=== PATIENT | female | born 1990 | race Asian ===

== ENCOUNTER 2019-08-30 22:28 | Inpatient (IN) | payer OTHER ==
[~2019-08-30] VITALS: Ht 167.6 cm; Wt 127.9 kg
[2019-08-30] MEDS ORDERED: PROMETHAZINE 25 MG/ML VIAL IVP PRN (22:50)
[2019-08-30] MEDS ORDERED: OXYTOCIN 20 UNITS in LACTATED RINGERS 1,000 ML IV SCH (22:50)
[2019-08-30] MEDS ORDERED: MISOPROSTOL 25 MCG TAB VG PRN (22:50)
[2019-08-30] MEDS ORDERED: MORPHINE SULFATE 5 MG/ML VIAL IVP PRN (22:50)
[2019-08-30] MEDS ORDERED: METHYLERGONOVINE 0.2 MG/ML AMP IM PRN (22:50)
[2019-08-30] MEDS ORDERED: fentaNYL 0.05 MG/ML VIAL IVP PRN (22:50)
[2019-08-30] MEDS: LACTATED RINGERS 1,000 ML IV SCH (23:45)
[2019-08-31 00:14] LABS: BASOPHILS % (AUTO) 0.4 % (0.0-2.0); EOSINOPHILS # (AUTO) 0.1 K/uL (0-0.4); EOSINOPHILS % (AUTO) 2.1 % (0.0-4.0); HEMATOCRIT 36.5 % (36-48); HEMOGLOBIN 11.7 g/dL (12.0-16.0); LYMPHOCYTES # (AUTO) 1.5 K/uL (2.5-16.5); LYMPHOCYTES % (AUTO) 23.4 % (20.5-51.1); MEAN CORPUSCULAR HEMOGLOBIN 27 pg (27-31); MEAN CORPUSCULAR HGB CONC 32 g/dL (33-37); MEAN CORPUSCULAR VOLUME 85.1 fL (80-94); MONOCYTES # (AUTO) 0.4 K/uL (0.8-1.0); MONOCYTES % (AUTO) 5.6 % (1.7-9.3); NEUTROPHILS # (AUTO) 4.4 K/uL (1.8-7.7); NEUTROPHILS % (AUTO) 68.5 % (42.2-75.2); PLATELET COUNT (AUTO) 188 K/uL (140-450); RED BLOOD CELL COUNT(AUTO) 4.29 MIL/uL (4.20-5.40); RED CELL DISTRIBUTION WIDTH 15.1 % (11.6-13.7); WHITE BLOOD COUNT (AUTO) 6.5 K/uL (4.8-10.8)
[2019-08-31 00:26] LABS: APPEARANCE,URINE CLEAR (CLEAR); BILIRUBIN,URINE NEGATIVE (NEGATIVE); BLOOD, URINE NEGATIVE (NEGATIVE); COLOR,URINE YELLOW (YELLOW); LEUKOCYTE ESTERASE ,URINE 2+ (NEGATIVE); NITRITE, URINE NEGATIVE (NEGATIVE); UGLUCOSE NEGATIVE (NEGATIVE)
[2019-08-31 00:29] VITALS: BP 114/62
[2019-08-31 00:35] LABS: ALBUMIN 2.4 g/dL (3.4-5.0); ANION GAP 12.9 (8-16); CARBON DIOXIDE 25.3 mmol/L (21-32); CREATININE 0.8 mg/dL (0.6-1.3); POTASSIUM 3.2 mmol/L (3.5-5.1); TOTAL BILIRUBIN 0.3 mg/dL (0.0-1.0)
[2019-08-31] MEDS ORDERED: PREN-380 PO (00:37)
[2019-08-31 00:55] LABS: RBC,URINE 0-5 /HPF (0-5); WBC,URINE TOO MANY TO COUNT /HPF (0-5)
[2019-08-31] MEDS ORDERED: ROPIVACAINE 0.2%/NS PREMIX 200 ML EPI ONE ×2 (06:07→17:22)
[2019-08-31] MEDS: LACTATED RINGERS 1,000 ML IV SCH (06:30)
--- NOTE | 2019-08-31 09:05 | NUR ---
PATIENT HAS BEEN SCREENED AND CATEGORIZED LOW NUTRITION RISK. PATIENT WILL BE SEEN WITHIN 7 DAYS OF ADMISSION. 09/06/[address]
[2019-08-31] MEDS ORDERED: OXYTOCIN 20 UNITS/LR PREMIX 1,000 ML IV ONE (10:09)
[2019-08-31] MEDS ORDERED: DEXT 5% / LACT RING 1,000 ML IV SCH (10:30)
[2019-08-31] MEDS ORDERED: GENTAMICIN 100 MG in DEXTROSE 5% 100 ML IV SCH (20:35)
[2019-08-31] MEDS ORDERED: CLINDAMYCIN 900 MG in DEXTROSE 5% 100 ML IV SCH (20:35)
[2019-08-31] MEDS ORDERED: GENTAMICIN PER PHARMACY MC PRN (20:35)
[2019-08-31] MEDS ORDERED: CLINDAMYCIN 900 MG/6 ML VIAL IV ONE (20:46)
[2019-08-31] MEDS ORDERED: GENTAMICIN 80 MG/2 ML VIAL ONE (21:24)
[2019-08-31] MEDS ORDERED: TEMAZEPAM 15 MG CAP PO PRN (22:15)
[2019-08-31] MEDS ORDERED: OXYTOCIN 10 UNITS/ML VIAL IM PRN (22:15)
[2019-08-31] MEDS ORDERED: METHYLERGONOVINE 0.2 MG TAB PO PRN (22:15)
[2019-08-31] MEDS ORDERED: METHYLERGONOVINE 0.2 MG/ML AMP IM PRN (22:15)
[2019-08-31] MEDS ORDERED: MEASLES, MUMPS, AND RUBELLA 1 VIAL SQVAC PRN (22:15)
[2019-09-01] MEDS: oxyCODONE/APAP 5/325 MG 1 TAB TAB PO PRN ×4 (02:40→21:15)
[2019-09-01 18:18] LABS: HEMATOCRIT 35.7 % (36-48); HEMOGLOBIN 11.5 g/dL (12.0-16.0)
[2019-09-01] MEDS ORDERED: DOCUSATE SOD/SENNA 50/8.6 MG 1 TAB PO SCH (21:00)
[2019-09-02] MEDS: IBUPROFEN 800 MG TAB PO PRN ×2 (02:35→14:19)
== END 2019-09-02 18:05 | disposition home or self-care (01) | DRG 560 ==
LOC: MLD 22:28 → MFCC 09-01 00:15
PROVIDERS: ADMIT Obstetrics & Gynecology; ATTEND Obstetrics & Gynecology
PROC: 10E0XZZ Delivery of Products of Conception, External Approach (ICD-10-PCS; principal; 2019-08-31)
PROC: 10907ZC Drainage of Amniotic Fluid, Therapeutic from Products of Conception, Via Natural or Artificial Opening (ICD-10-PCS; 2019-08-31)
PROC: 3E0R3BZ Introduction of Anesthetic Agent into Spinal Canal, Percutaneous Approach (ICD-10-PCS; 2019-08-31)
PROC: 00HU33Z Insertion of Infusion Device into Spinal Canal, Percutaneous Approach (ICD-10-PCS; 2019-08-31)
PROC: 3E033VJ Introduction of Other Hormone into Peripheral Vein, Percutaneous Approach (ICD-10-PCS; 2019-08-31)
PROC: 3E0P7VZ Introduction of Hormone into Female Reproductive, Via Natural or Artificial Opening (ICD-10-PCS; 2019-08-31)
PROC: 3E0234Z Introduction of Serum, Toxoid and Vaccine into Muscle, Percutaneous Approach (ICD-10-PCS; 2019-08-31)
DX: O69.81X0 Labor and delivery complicated by cord around neck, without compression, not applicable or unspecified (principal); O24.424 Gestational diabetes mellitus in childbirth, insulin controlled; Z3A.38 38 weeks gestation of pregnancy; Z37.0 Single live birth; Z23 Encounter for immunization
CPT/HCPCS: 36415; 51702; 59200; 59409; 76815; 80053; 81001; 82948; 85018; 85025; 86592; 86886; 86900; 86901; 87086; 87186; 87653-90; 90715; J1580; J2590; J2795; J3490; J7120; Q0092

== ENCOUNTER 2020-06-19 07:15 | Emergency (ER) | payer OTHER ==
[~2020-06-19] VITALS: Ht 167.6 cm; Wt 122.5 kg
[~2020-06-19 07:15] MED LIST: PREN-380 PO
[2020-06-19 07:20] VITALS: BP 133/86
[2020-06-19] MEDS ORDERED: NACL 0.9% 1,000 ML IV ONE (07:30)
[2020-06-19] MEDS ORDERED: MORPHINE SULFATE 4 MG/ML SYR IVP ONE (07:30)
[2020-06-19] MEDS ORDERED: ONDANSETRON 4 MG/2 ML VIAL IVP ONE (07:30)
[2020-06-19 08:08] LABS: BASOPHILS % (AUTO) 0.2 % (0.0-2.0); EOSINOPHILS # (AUTO) 0.2 K/uL (0-0.4); EOSINOPHILS % (AUTO) 2.4 % (0.0-4.0); HEMATOCRIT 38.5 % (36-48); HEMOGLOBIN 12.7 g/dL (12.0-16.0); LYMPHOCYTES # (AUTO) 1.9 K/uL (2.5-16.5); MEAN CORPUSCULAR HEMOGLOBIN 29 pg (27-31); MEAN CORPUSCULAR HGB CONC 33 g/dL (33-37); MEAN CORPUSCULAR VOLUME 87.2 fL (80-94); MONOCYTES # (AUTO) 0.5 K/uL (0.8-1.0); MONOCYTES % (AUTO) 5.4 % (1.7-9.3); NEUTROPHILS # (AUTO) 5.8 K/uL (1.8-7.7); PLATELET COUNT (AUTO) 221 K/uL (140-450); RED BLOOD CELL COUNT(AUTO) 4.41 MIL/uL (4.20-5.40); RED CELL DISTRIBUTION WIDTH 14.2 % (11.6-13.7); WHITE BLOOD COUNT (AUTO) 8.5 K/uL (4.8-10.8)
[2020-06-19 08:21] LABS: ANION GAP 14.1 (8-16); CARBON DIOXIDE 24.5 mmol/L (21-32); CREATININE 0.8 mg/dL (0.6-1.3); POTASSIUM 3.6 mmol/L (3.5-5.1); TOTAL BILIRUBIN 0.3 mg/dL (0.0-1.0)
[2020-06-19 09:29] LABS: APPEARANCE,URINE HAZY (CLEAR); BILIRUBIN,URINE NEGATIVE (NEGATIVE); BLOOD, URINE 2+ (NEGATIVE); COLOR,URINE YELLOW (YELLOW); LEUKOCYTE ESTERASE ,URINE 1+ (NEGATIVE); NITRITE, URINE NEGATIVE (NEGATIVE); UGLUCOSE NEGATIVE (NEGATIVE)
[2020-06-19 09:34] LABS: WBC,URINE 0-5 /HPF (0-5)
[2020-06-19] MEDS ORDERED: cefTRIAXone 1,000 MG VIAL ONE (10:06)
[2020-06-19] MEDS ORDERED: ACET-9527 PO (10:15)
[2020-06-19] MEDS ORDERED: ACET-1194 PO (10:15)
[2020-06-19] MEDS ORDERED: ONDA-24 SL (10:15)
[2020-06-19] MEDS ORDERED: CEPH500C16 PO (10:15)
[2020-06-19 11:05] VITALS: BP 107/57
== END 2020-06-19 11:05 | disposition home or self-care (01) ==
LOC: MED 07:15
DX: O26.832 Pregnancy related renal disease, second trimester (principal); O24.419 Gestational diabetes mellitus in pregnancy, unspecified control; Z3A.17 17 weeks gestation of pregnancy
CPT/HCPCS: 36415; 76770; 76805; 80053; 81001; 83690; 84702; 85025; 86900; 86901; 87086; 96361; 96365; 96375; 99285; J0696; J2270; J2405; J7030

== ENCOUNTER 2020-11-04 22:00 | Inpatient (IN) | payer OTHER, SELFPAY ==
[~2020-11-04] VITALS: Ht 167.6 cm; Wt 128.4 kg
[~2020-11-04 22:00] MED LIST changes: +ACET-1194 PO; +ACET-9527 PO; +CEPH500C16 PO; +ONDA-24 SL
[2020-11-04] MEDS ORDERED: METHYLERGONOVINE 0.2 MG/ML AMP IM PRN (23:10)
[2020-11-04] MEDS ORDERED: OXYTOCIN 20 UNITS in LACTATED RINGERS 1,000 ML IV PRN (23:10)
[2020-11-04] MEDS ORDERED: ONDANSETRON 4 MG/2 ML VIAL IVP PRN (23:10)
[2020-11-04] MEDS ORDERED: MORPHINE SULFATE 5 MG/ML VIAL IVP PRN (23:10)
[2020-11-05 00:09] LABS: BASOPHILS % (AUTO) 0.4 % (0.0-2.0); EOSINOPHILS # (AUTO) 0.2 K/uL (0-0.4); EOSINOPHILS % (AUTO) 2.4 % (0.0-4.0); HEMATOCRIT 33.9 % (36-48); LYMPHOCYTES # (AUTO) 1.6 K/uL (2.5-16.5); LYMPHOCYTES % (AUTO) 21.9 % (20.5-51.1); MEAN CORPUSCULAR HEMOGLOBIN 28 pg (27-31); MEAN CORPUSCULAR HGB CONC 33 g/dL (33-37); MEAN CORPUSCULAR VOLUME 84.5 fL (80-94); MONOCYTES # (AUTO) 0.6 K/uL (0.8-1.0); MONOCYTES % (AUTO) 8.6 % (1.7-9.3); NEUTROPHILS # (AUTO) 4.8 K/uL (1.8-7.7); NEUTROPHILS % (AUTO) 66.7 % (42.2-75.2); PLATELET COUNT (AUTO) 209 K/uL (140-450); RED CELL DISTRIBUTION WIDTH 15.2 % (11.6-13.7); WHITE BLOOD COUNT (AUTO) 7.1 K/uL (4.8-10.8)
[2020-11-05 00:30] LABS: ALBUMIN 2.4 g/dL (3.4-5.0); ANION GAP 12.5 (8-16); CARBON DIOXIDE 23.5 mmol/L (21-32); CREATININE 0.9 mg/dL (0.6-1.3); TOTAL BILIRUBIN 0.2 mg/dL (0.0-1.0)
[2020-11-05 00:37] LABS: APPEARANCE,URINE HAZY (CLEAR); BILIRUBIN,URINE NEGATIVE (NEGATIVE); BLOOD, URINE TRACE-I (NEGATIVE); COLOR,URINE YELLOW (YELLOW); LEUKOCYTE ESTERASE ,URINE NEGATIVE (NEGATIVE); NITRITE, URINE NEGATIVE (NEGATIVE); PH,URINE 6.5 (5.0-9.0); UGLUCOSE NEGATIVE (NEGATIVE)
[2020-11-05 00:39] LABS: URINE TOTAL PROTEIN 28.3 mg/dL (0-12)
[2020-11-05 00:48] LABS: WBC,URINE 0-5 /HPF (0-5)
[2020-11-05 00:54] LABS: YEAST,URINE Rare /HPF (None Seen)
[2020-11-05] MEDS ORDERED: AMPICILLIN 2,000 MG in NACL 0.9% 100 ML IV SCH (01:00)
[2020-11-05] MEDS ORDERED: LACTATED RINGERS 1,000 ML IV SCH (01:00)
[2020-11-05 01:01] VITALS: BP 109/72
[2020-11-05] MEDS ORDERED: AMPICILLIN 2,000 MG VIAL ONE (01:37)
[2020-11-05] MEDS ORDERED: AMPICILLIN 1,000 MG VIAL ONE ×4 (05:22→18:18)
[2020-11-05] MEDS: AMPICILLIN 1,000 MG in NACL 0.9% 50 ML IV SCH ×4 (06:05→18:28)
[2020-11-05] MEDS ORDERED: OXYTOCIN 20 UNITS/LR PREMIX 1,000 ML IV ONE (06:24)
--- NOTE | 2020-11-05 07:07 | NUR ---
PATIENT HAS BEEN SCREENED AND CATEGORIZED LOW NUTRITION RISK. PATIENT WILL BE SEEN WITHIN 7 DAYS OF ADMISSION. 11/11/20 RIVAS LEO MS, RDN
[2020-11-05] MEDS ORDERED: MORPHINE SULFATE 10 MG/ML VIAL ONE (09:22)
[2020-11-05 09:27] VITALS: BP 119/76
[2020-11-05] MEDS ORDERED: [UNRECOGNIZED DRUG - OTHER] ONE (15:12)
[2020-11-05] MEDS ORDERED: LIDOCAINE MPF 1% 10 MG/ML VIAL ONE (15:12)
[2020-11-05] MEDS ORDERED: ROPIVACAINE 0.2%/NS PREMIX 200 ML EPI ONE (15:15)
[2020-11-05] MEDS ORDERED: fentaNYL citrate 0.05 MG/ML VIAL ONE (15:15)
[2020-11-05] MEDS ORDERED: OXYTOCIN 10 UNITS/ML VIAL IM PRN (20:35)
[2020-11-05] MEDS ORDERED: MEASLES, MUMPS, AND RUBELLA 1 VIAL SQVAC ONE (20:35)
[2020-11-05] MEDS ORDERED: BENZOCAINE/MENTHOL 20%-0.5% 60 GM CAN TP PRN (20:35)
[2020-11-06] MEDS: IBUPROFEN 800 MG TAB PO PRN ×3 (00:47→14:10)
[2020-11-06 06:19] LABS: HEMATOCRIT 31.7 % (36-48); HEMOGLOBIN 10.4 g/dL (12.0-16.0)
[2020-11-07] MEDS: IBUPROFEN 800 MG TAB PO PRN (05:19)
== END 2020-11-07 13:20 | disposition home or self-care (01) | DRG 560 ==
LOC: MLD 22:00 → MFCC 11-05 22:50
PROVIDERS: ADMIT Obstetrics & Gynecology; ATTEND Obstetrics & Gynecology
PROC: 10E0XZZ Delivery of Products of Conception, External Approach (ICD-10-PCS; principal; 2020-11-05)
PROC: 3E0R3BZ Introduction of Anesthetic Agent into Spinal Canal, Percutaneous Approach (ICD-10-PCS; 2020-11-05)
PROC: 00HU33Z Insertion of Infusion Device into Spinal Canal, Percutaneous Approach (ICD-10-PCS; 2020-11-05)
PROC: 3E033VJ Introduction of Other Hormone into Peripheral Vein, Percutaneous Approach (ICD-10-PCS; 2020-11-05)
PROC: 10907ZC Drainage of Amniotic Fluid, Therapeutic from Products of Conception, Via Natural or Artificial Opening (ICD-10-PCS; 2020-11-05)
DX: O15.1 Eclampsia complicating labor (principal); Z37.0 Single live birth; E66.9 Obesity, unspecified; O24.425 Gestational diabetes mellitus in childbirth, controlled by oral hypoglycemic drugs; O14.94 Unspecified pre-eclampsia, complicating childbirth; O13.4 Gestational [pregnancy-induced] hypertension without significant proteinuria, complicating childbirth; Z20.822 Contact with and (suspected) exposure to COVID-19; O99.214 Obesity complicating childbirth; O99.824 Streptococcus B carrier state complicating childbirth; O69.81X0 Labor and delivery complicated by cord around neck, without compression, not applicable or unspecified; Z3A.37 37 weeks gestation of pregnancy
CPT/HCPCS: 36415; 59409; 76815; 80053; 81001; 82570; 82948; 85018; 85025; 86592; 86886; 86900; 86901; 87086; J0290; J2001; J2270; J2405; J2590; J2795; J3010; Q0092

== ENCOUNTER 2022-10-21 00:27 | Inpatient (IN) | payer OTHER ==
[~2022-10-21] VITALS: Ht 167.6 cm; Wt 123.8 kg
[~2022-10-21 00:27] MED LIST changes: -ACET-1194 PO; -ACET-9527 PO; -CEPH500C16 PO; -ONDA-24 SL
[2022-10-21] MEDS ORDERED: CARBOPROST 250 MCG/ML AMP IM PRN (00:50)
[2022-10-21] MEDS ORDERED: LACTATED RINGERS 500 ML IV ONE (00:50)
[2022-10-21 01:30] VITALS: BP 107/72; PULSE 93; RESP 19; TEMP 98.4
[2022-10-21] MEDS ORDERED: MISOPROSTOL 200 MCG TAB VG SCH (02:00)
[2022-10-21 02:27] LABS: APPEARANCE,URINE CLEAR (CLEAR); BILIRUBIN,URINE NEGATIVE (NEGATIVE); BLOOD, URINE 3+ (NEGATIVE); COLOR,URINE YELLOW (YELLOW); LEUKOCYTE ESTERASE ,URINE TRACE (NEGATIVE); NITRITE, URINE NEGATIVE (NEGATIVE); PROTEIN,URINE TRACE (NEGATIVE); UGLUCOSE NEGATIVE (NEGATIVE); UROBILINOGEN,URINE 0.2 EU/dL (0.2 - 1)
[2022-10-21 02:29] LABS: BASOPHILS % (AUTO) 0.4 % (0.0-2.0); EOSINOPHILS # (AUTO) 0.2 K/uL (0-0.4); EOSINOPHILS % (AUTO) 2.4 % (0.0-4.0); HEMATOCRIT 33.4 % (36-48); HEMOGLOBIN 10.8 g/dL (12.0-16.0); LYMPHOCYTES % (AUTO) 28.1 % (20.5-51.1); MEAN CORPUSCULAR HEMOGLOBIN 27 pg (27-31); MEAN CORPUSCULAR HGB CONC 32 g/dL (33-37); MEAN CORPUSCULAR VOLUME 82.7 fL (80-94); MONOCYTES # (AUTO) 0.5 K/uL (0.8-1.0); MONOCYTES % (AUTO) 6.4 % (1.7-9.3); NEUTROPHILS # (AUTO) 4.5 K/uL (1.8-7.7); NEUTROPHILS % (AUTO) 62.7 % (42.2-75.2); PLATELET COUNT (AUTO) 197 K/uL (140-450); RED BLOOD CELL COUNT(AUTO) 4.03 MIL/uL (4.20-5.40); RED CELL DISTRIBUTION WIDTH 16.6 % (11.6-13.7); WHITE BLOOD COUNT (AUTO) 7.1 K/uL (4.8-10.8)
[2022-10-21 02:33] LABS: INR 0.92 (0.8-1.2); PARTIAL THROMBOPLASTIN TIME 26.3 secs (22-35.6); PROTHROMBIN TIME 9.7 secs (10.8-13.4)
[2022-10-21 02:41] LABS: ALBUMIN 2.3 g/dL (3.4-5.0); ANION GAP 13.2 (8-16); CALCIUM 8.5 mg/dL (8.5-10.1); CARBON DIOXIDE 24.8 mmol/L (21-32); CREATININE 0.9 mg/dL (0.6-1.3); TOTAL BILIRUBIN 0.4 mg/dL (0.0-1.0)
[2022-10-21 02:54] LABS: BACTERIA,URINE 1+ /HPF (None Seen); RBC,URINE >100 /HPF (0-5); SQUAMOUS EPITHELIAL CELL,UR 11 /LPF (0-3 (FEW))
[2022-10-21] MEDS ORDERED: AMPICILLIN 2,000 MG in NACL 0.9% MINI-BAG PLUS 100 ML IV SCH (03:00)
[2022-10-21] MEDS ORDERED: AMPICILLIN 2,000 MG VIAL ONE (03:07)
[2022-10-21] MEDS ORDERED: MISOPROSTOL 25 MCG TAB ONE (03:09)
[2022-10-21] MEDS: LACTATED RINGERS 1,000 ML IV SCH ×2 (03:26→11:42)
[2022-10-21] MEDS: ONDANSETRON 4 MG/2 ML VIAL IVP PRN ×2 (03:55→11:16)
[2022-10-21] MEDS: MORPHINE SULFATE 10 MG/ML VIAL IVP PRN ×3 (04:03→11:15)
[2022-10-21] MEDS ORDERED: AMPICILLIN 1,000 MG VIAL ONE (07:42)
[2022-10-21] MEDS ORDERED: AMPICILLIN 1,000 MG in NACL 0.9% MINI-BAG PLUS 50 ML IV SCH (08:00)
[2022-10-21] MEDS ORDERED: MISOPROSTOL 200 MCG TAB VG PRN (08:15)
[2022-10-21] MEDS ORDERED: MISOPROSTOL 25 MCG TAB VG PRN (08:20)
[2022-10-21] MEDS ORDERED: OXYTOCIN 20 UNITS in LACTATED RINGERS 1,000 ML IV SCH (09:15)
[2022-10-21] MEDS ORDERED: OXYTOCIN 20 UNITS/LR PREMIX 1,000 ML IV ONE (09:17)
[2022-10-21] MEDS ORDERED: ACETAMINOPHEN 325 MG TAB PO PRN (09:40)
[2022-10-21 11:15] VITALS: BP 102/62; PULSE 70; RESP 16; O2SAT 96
[2022-10-21] MEDS ORDERED: ROPIVACAINE 0.2%/NS PREMIX 200 ML EPI ONE (12:16)
[2022-10-21] MEDS ORDERED: ROPIVACAINE 0.2%/NS PREMIX 100 ML EPI SCH (12:50)
[2022-10-21] MEDS ORDERED: LIDOCAINE 1% 500 MG/ 50 ML VIAL INJ SCH (14:15)
[2022-10-21] MEDS ORDERED: MISOPROSTOL 100 MCG TAB PO PRN (14:15)
[2022-10-21] MEDS ORDERED: LIDOCAINE 1% 500 MG/50 ML VIAL ONE (15:03)
[2022-10-21] MEDS ORDERED: MISOPROSTOL 200 MCG TAB ONE (15:03)
[2022-10-21] MEDS ORDERED: METHYLERGONOVINE 0.2 MG/ML AMP ONE (15:04)
[2022-10-21] MEDS ORDERED: METHYLERGONOVINE 0.2 MG/ML AMP IM PRN ×2 (18:45→19:25)
[2022-10-21] MEDS ORDERED: BENZOCAINE/MENTHOL 20%-0.5% 60 GM CAN TP PRN (19:25)
[2022-10-21] MEDS ORDERED: DOCUSATE SODIUM 100 MG GELCAP PO PRN (19:25)
[2022-10-21] MEDS ORDERED: OXYTOCIN 10 UNITS/ML VIAL IM PRN (19:25)
[2022-10-21] MEDS ORDERED: METHYLERGONOVINE 0.2 MG TAB PO PRN (19:25)
[2022-10-21] MEDS ORDERED: SIMETHICONE 80 MG TAB.CHEW PO PRN (19:25)
[2022-10-21] MEDS ORDERED: bisacodyL 5 MG TABEC PO PRN (19:25)
[2022-10-21] MEDS ORDERED: HYDROcodone/APAP 5/325 MG 1 TAB TAB PO PRN (19:25)
[2022-10-21] MEDS ORDERED: IBUPROFEN 600 MG TAB PO PRN (19:30)
[2022-10-21] MEDS: HYDROcodone/APAP 5/325 MG 1 TAB TAB PO PRN (23:18)
[2022-10-22 08:37] LABS: HEMATOCRIT 30.3 % (36-48); HEMOGLOBIN 9.7 g/dL (12.0-16.0)
[2022-10-22] MEDS: HYDROcodone/APAP 5/325 MG 1 TAB TAB PO PRN (14:51)
[2022-10-23] MEDS: HYDROcodone/APAP 5/325 MG 1 TAB TAB PO PRN (02:12)
== END 2022-10-23 09:48 | disposition home or self-care (01) | DRG 560 ==
LOC: MLD 00:27 → MFCC 21:09
PROVIDERS: ADMIT Obstetrics & Gynecology; ATTEND Obstetrics & Gynecology
PROC: 10E0XZZ Delivery of Products of Conception, External Approach (ICD-10-PCS; principal; 2022-10-21)
PROC: 3E0R3BZ Introduction of Anesthetic Agent into Spinal Canal, Percutaneous Approach (ICD-10-PCS; 2022-10-21)
PROC: 00HU33Z Insertion of Infusion Device into Spinal Canal, Percutaneous Approach (ICD-10-PCS; 2022-10-21)
DX: O40.3XX0 Polyhydramnios, third trimester, not applicable or unspecified (principal); Z37.0 Single live birth; O24.429 Gestational diabetes mellitus in childbirth, unspecified control; O13.4 Gestational [pregnancy-induced] hypertension without significant proteinuria, complicating childbirth; O99.214 Obesity complicating childbirth; Z3A.38 38 weeks gestation of pregnancy; Z20.822 Contact with and (suspected) exposure to COVID-19
CPT/HCPCS: 36415; 59200; 59409; 76815; 80053; 81001; 82948; 85018; 85025; 85610; 85730; 86592; 86886; 86900; 86901; 87086; 87653-90; J0290; J2001; J2210; J2270; J2405; J2590; J2795; Q0092